=== PATIENT | male | born 1935 ===

== ENCOUNTER 2021-06-13 20:08 | Inpatient (IN) | payer OTHER ==
[~2021-06-13] VITALS: Ht 177.8 cm; Wt 54.4 kg
[2021-06-13] MEDS ORDERED: MELOXICAM7.5 MG (20:29)
[2021-06-13] MEDS ORDERED: VERELAN180 MG (20:29)
[2021-06-13] MEDS ORDERED: PEPCID20 MG (20:29)
[2021-06-13] MEDS ORDERED: ZESTRIL20 MG (20:30)
[2021-06-13] MEDS ORDERED: CALCIUM500 M2 (20:30)
[2021-06-13] MEDS ORDERED: ACID REDUCER20 M1 (20:30)
[2021-06-13] MEDS ORDERED: DILTIAZEM 24HR180 MG (20:30)
[2021-06-13] MEDS ORDERED: VIRT-CAPS SOFTGE1 MG (20:31)
[2021-06-13] MEDS ORDERED: IRBESARTAN150 MG (20:31)
[2021-06-13] MEDS ORDERED: KETO10TA2 (20:32)
[2021-06-13] MEDS ORDERED: BACLOFEN5 GM (20:32)
[2021-06-15] MEDS ORDERED: PANTOPRAZOLE SO20 MG (08:26)
== END 2021-07-22 08:58 | disposition expired | DRG 682 ==
LOC: ER 20:08 → ICU 06-14 13:32 → SURH 06-14 13:32 → ICU 06-17 07:35
PROVIDERS: ADMIT Internal Medicine; ATTEND Internal Medicine
PROC: BW2810Z Computerized Tomography (CT Scan) of Head using Low Osmolar Contrast, Unenhanced and Enhanced (ICD-10-PCS; 2021-06-14)
PROC: 8E0ZXY6 Isolation (ICD-10-PCS; 2021-06-14)
PROC: 4A12X4Z Monitoring of Cardiac Electrical Activity, External Approach (ICD-10-PCS; 2021-06-14)
PROC: BT4JZZZ Ultrasonography of Kidneys and Bladder (ICD-10-PCS; 2021-06-14)
PROC: B24BZZZ Ultrasonography of Heart with Aorta (ICD-10-PCS; 2021-06-14)
PROC: B030Y0Z Magnetic Resonance Imaging (MRI) of Brain using Other Contrast, Unenhanced and Enhanced (ICD-10-PCS; 2021-06-14)
PROC: 3E0F7SF Introduction of Other Gas into Respiratory Tract, Via Natural or Artificial Opening (ICD-10-PCS; 2021-06-14)
PROC: 3E0F7GC Introduction of Other Therapeutic Substance into Respiratory Tract, Via Natural or Artificial Opening (ICD-10-PCS; 2021-06-14)
PROC: 4A033R1 Measurement of Arterial Saturation, Peripheral, Percutaneous Approach (ICD-10-PCS; 2021-06-14)
PROC: 02HV33Z Insertion of Infusion Device into Superior Vena Cava, Percutaneous Approach (ICD-10-PCS; 2021-06-14)
PROC: 5A1955Z Respiratory Ventilation, Greater than 96 Consecutive Hours (ICD-10-PCS; principal; 2021-06-16)
PROC: 0BH17EZ Insertion of Endotracheal Airway into Trachea, Via Natural or Artificial Opening (ICD-10-PCS; 2021-06-16)
PROC: 30243N1 Transfusion of Nonautologous Red Blood Cells into Central Vein, Percutaneous Approach (ICD-10-PCS; 2021-06-29)
PROC: 5A09557 Assistance with Respiratory Ventilation, Greater than 96 Consecutive Hours, Continuous Positive Airway Pressure (ICD-10-PCS; 2021-06-30)
PROC: 30243R1 Transfusion of Nonautologous Platelets into Central Vein, Percutaneous Approach (ICD-10-PCS; 2021-06-30)
PROC: 5A1935Z Respiratory Ventilation, Less than 24 Consecutive Hours (ICD-10-PCS; 2021-07-22)
PROC: 0BH17EZ Insertion of Endotracheal Airway into Trachea, Via Natural or Artificial Opening (ICD-10-PCS; 2021-07-22)
DX: N17.8 Other acute kidney failure (principal); G92.8 Other toxic encephalopathy; I50.23 Acute on chronic systolic (congestive) heart failure; R65.20 Severe sepsis without septic shock; J96.00 Acute respiratory failure, unspecified whether with hypoxia or hypercapnia; J10.01 Influenza due to other identified influenza virus with the same other identified influenza virus pneumonia; J12.89 Other viral pneumonia; I21.4 Non-ST elevation (NSTEMI) myocardial infarction; I13.0 Hypertensive heart and chronic kidney disease with heart failure and stage 1 through stage 4 chronic kidney disease, or unspecified chronic kidney disease; N39.0 Urinary tract infection, site not specified; J81.1 Chronic pulmonary edema; I42.0 Dilated cardiomyopathy; E87.0 Hyperosmolality and hypernatremia; E87.2 Acidosis; E87.3 Alkalosis; E87.1 Hypo-osmolality and hyponatremia; J90 Pleural effusion, not elsewhere classified; I48.20 Chronic atrial fibrillation, unspecified; R46.89 Other symptoms and signs involving appearance and behavior; E86.0 Dehydration; E87.6 Hypokalemia; I44.7 Left bundle-branch block, unspecified; R41.82 Altered mental status, unspecified; E83.52 Hypercalcemia; N18.30 Chronic kidney disease, stage 3 unspecified; D63.1 Anemia in chronic kidney disease; E83.39 Other disorders of phosphorus metabolism; D72.828 Other elevated white blood cell count; D69.6 Thrombocytopenia, unspecified; I95.89 Other hypotension; E83.42 Hypomagnesemia; Z20.822 Contact with and (suspected) exposure to COVID-19
CPT/HCPCS: 70551